=== PATIENT | male | born 1980 | race Asian ===

== ENCOUNTER 2018-03-29 17:01 | Emergency (ER) | payer SELFPAY ==
[~2018-03-29] VITALS: Ht 157.5 cm; Wt 59.9 kg
[2018-03-29 17:19] VITALS: BP 114/81
[2018-03-29] MEDS ORDERED: cefTRIAXone SOD 1,000 MG VL IM ONE (19:15)
[2018-03-29] MEDS ORDERED: AZITHROMYCIN 250 MG TAB PO ONE (19:15)
[2018-03-29] MEDS ORDERED: PENICILLIN G BENZ 1200000 UNITS/2 ML SYRG IM ONE (19:15)
[2018-04-01 12:45] LABS: Hepatitis A Ab IgM Negative; Hepatitis B Core IgM Negative; Hepatitis B Surface Antigen Negative (Negative)
[2018-04-01 12:46] LABS: Hepatitis C Antibody Negative (Negative)
== END 2018-03-29 20:38 | disposition home or self-care (01) ==
LOC: ER 17:08
DX: Z20.2 Contact with and (suspected) exposure to infections with a predominantly sexual mode of transmission (principal); F41.9 Anxiety disorder, unspecified
CPT/HCPCS: 36415; 80074; 86592; 86703; 96372; 99283; J0561; J0696